=== PATIENT | male | born 1945 | race Caucasian/White ===

== ENCOUNTER → 2017-05-09 | Outpatient (CLI) | payer MEDICARE, BC | END | disposition home or self-care (01) | LOC: PCVCCLINIC 12:47 | PROVIDERS: ATTEND Internal Medicine Cardiovascular Disease | DX: I25.10 Atherosclerotic heart disease of native coronary artery without angina pectoris (principal); I10 Essential (primary) hypertension; E78.00 Pure hypercholesterolemia, unspecified; E03.9 Hypothyroidism, unspecified; I44.0 Atrioventricular block, first degree; I45.10 Unspecified right bundle-branch block; I25.2 Old myocardial infarction; Z88.5 Allergy status to narcotic agent; Z79.84 Long term (current) use of oral hypoglycemic drugs | CPT/HCPCS: 93005; G0463 ==

== ENCOUNTER → 2017-07-04 | Outpatient (CLI) | payer MEDICARE ==
--- NOTE | 2017-07-04 15:24 | PCVCIMAG ---
APPROVED REPORT Study performed: 07/04/2017 14:25:42 EXAM: Comprehensive 2D, Doppler, and color-flow Echocardiogram Patient Location: Echo lab Status: routine BSA: 2.36 HR: 68 bpmBP: 136/68 mmHg Rhythm: NSR Other Information Study Quality: Adequate Risk Factors: Cardiac Risk Factors: HTN Indications Diabetes Dyspnea CAD 2D Dimensions LVEF(%): 71.08 (>50%) IVSd: 12.71 (7-11mm) LVDd: 38.79 mm PWd: 14.22 (7-11mm) LVDs: 23.35 (25-40mm) Left Atrium: 38.51 (27-40mm) Aortic Root: 32.46 mm LV Single Plane 4CH: 60.46 % LV Single Plane 2CH: 51.99 %Huang's LVEF: 56.22 % Biplane EF: 56.2 % Volumes Left Atrial Volume (Systole) Single Plane 4CH: 88.75 mLSingle Plane 2CH: 89.84 mL LA ESV Index: 42.00 mL/m2 Aortic Valve AoV Peak Rich.: 1.49 m/s AO Peak Gr.: 8.91 mmHgLVOT Max P.29 mmHg LVOT Max V: 1.04 m/s Mitral Valve E/A Ratio: 0.8 MV Decel. Time: 414.33 ms MV E Max Rich.: 0.65 m/s MV A Rich.: 0.77 m/s IVRT: 124.57 ms Pulmonary Vein P Vein S: 0.27 m/sP Vein A: 0.31 m/s P Vein D: 0.39 m/sP Vein A Dur.: 159.2 msec P Vein S/D Ratio: 0.69 Tricuspid Valve TR Peak Rich.: 2.28 m/s TR Peak Gr.: 20.82 mmHg Left Ventricle The left ventricle is normal size. There is normal LV segmental wall motion. Mild concentric left ventricular hypertrophy. Left ventricular systolic function is normal. The left ventricular ejection fraction is within the normal range. LVEF is 55-60%. Grade I - abnormal relaxation pattern. Right Ventricle The right ventricle is normal size. The right ventricular systolic function is normal. Atria Left atrium is moderately dilated. Right atrium is mildly dilated. Aortic Valve Moderate aortic sclerosis, no stenosis. No aortic regurgitation is present. There is no aortic valvular stenosis. Mitral Valve The mitral valve is normal in structure. There is no mitral valve regurgitation noted. No evidence of mitral valve stenosis. Tricuspid Valve The tricuspid valve is normal in structure. Trace tricuspid regurgitation with PAP of 28 mmHg. Pulmonic Valve The pulmonary valve is normal in structure. There is no pulmonic valvular regurgitation. Great Vessels The aortic root is normal in size. IVC is normal in size and collapses with >50% inspiration Pericardium There is no pericardial effusion. <Conclusion> The left ventricle is normal size. Mild concentric left ventricular hypertrophy. Left ventricular systolic function is normal. Grade I - abnormal relaxation pattern. The right ventricle is normal size. Left atrium is moderately dilated. There is no aortic valvular stenosis. The mitral valve is normal in structure. Trace tricuspid regurgitation with PAP of 28 mmHg.
== END | disposition home or self-care (01) ==
LOC: PCVCIMAG 14:24
PROVIDERS: ATTEND Internal Medicine Cardiovascular Disease
DX: I25.10 Atherosclerotic heart disease of native coronary artery without angina pectoris (principal); I10 Essential (primary) hypertension; E11.9 Type 2 diabetes mellitus without complications; I51.7 Cardiomegaly; I35.8 Other nonrheumatic aortic valve disorders
CPT/HCPCS: 93005; 93306; G0463

== ENCOUNTER → 2017-07-16 | Outpatient (CLI) | payer MEDICARE ==
[~2017-07-16] MED LIST: REGADENOSON 0.4 MG/5 ML DISP.SYRIN. IV ONE
--- NOTE | 2017-07-16 11:03 | PCVCIMAG ---
APPROVED REPORT Exam: Nuclear Stress Test Indication: Dyspnea, Fatigue Patient Location: Out-Patient Stress Nurse: So Caputo RN, Shannon Frazier RN VA Tech:MOSES HammondMT Ht: 6 ft 1 in Wt: 245 lbs BSA: 2.35 m2 HR: 60 bpm BP: 150/68 mmHg BMI: 32.32 Rhythm: SR, RBBB Medical History Medical History: Hyperlipidemia, HTN, Diabetic Noninsulin, Age, CAD, [place] Medications: Amlodipine, Atorvastatin, Coreg, Hyzaar, Glucophage Allergies: Codeine Previous Cardiac Procedures: PCI Pretest Chest Pain Characteristics: No chest pain Exercise History: Sedentary Physical Disabilities: Knees Meds Held (24 hrs): Carvedilol Stress Test Details Stress Test: Pharmacologic stress testing performed using 0.4 mg of regadenoson per 5 mL given IV over 10 seconds. Reason for pharmacologic stress test: physical limitation. HR Resting HR: 60 bpmMax Heart Rate (APMHR): 149 bpm Max HR Achieved: 91 bpmTarget HR (85% APMHR): 126 bpm % of APMHR: 61 Recovery HR: 81 bpm BP Resting BP: 150/68 mmHg Max BP: 133/63 mmHg ECG Resting ECG: Sinus Rhythm, RBBB, Bifascicular Block Stress ECG: Sinus Rhythm, RBBB, Bifascicular Block ST Change: Non-ischemic Recovery ECG: Sinus Rhythm, RBBB, Bifascicular Block Clinical Reason for Termination: Completed protocol Stress Symptoms: Dizzy Exercise duration: 0 min 55 sec Exercise capacity: 1.0 METs Symptoms resolved during recovery. NM EXAM: Myocardial Perfusion REST/STRESS Imaging Protocol: Rest Tc-99m/Stress Tc-99m 1 day Resting Data Rest SPECT myocardial perfusion imaging was performed in supine position 45 minutes following the intravenous injection of 10.2 mCi of Tc-99m Sestamibi. Time of rest injection: 819 Date: 07/16/2017 Administration Route: IV Administration Site: Right AC Pharmacologic Stress Pharmacologic stress test was performed by injecting Regadenoson 0.4 mg IV push followed by the intravenous injection of 31.7 mCi of Tc-99m Sestamibi. Time of stress injection: 929 Administration Route: IV Administration Site: Right AC Gated Stress SPECT was performed 45 minutes after stress injection. Study Quality Study: Good Study Data Post stress, the left ventricular ejection was 75%.. SSS: 0 SRS: 1 SDS: 0 TID = 1.28. Perfusion There is a small area of mildly reduced uptake in the basal segment of the inferior wall which is seen on the stress images as well as the resting images. This area thickens and moves normally and is most consistent with myocardial scar. Wall Motion Normal left ventricular wall motion. Nuclear Conclusion ECG Findings: negative for ischemia Clinical Findings: non-diagnostic Nuclear Findings: negative for ischemia This study is of low probability for inducible ischemia. There is an incomplete infarct in the basal inferior segment. Normal global and segmental LV systolic function.
== END | disposition home or self-care (01) ==
LOC: PCVCIMAG 08:12
PROVIDERS: ATTEND Internal Medicine Cardiovascular Disease
DX: I25.10 Atherosclerotic heart disease of native coronary artery without angina pectoris (principal); I10 Essential (primary) hypertension; E78.00 Pure hypercholesterolemia, unspecified; R06.00 Dyspnea, unspecified; R53.83 Other fatigue; E11.9 Type 2 diabetes mellitus without complications; Z95.5 Presence of coronary angioplasty implant and graft; Z79.82 Long term (current) use of aspirin
CPT/HCPCS: 78452; 93017; A9500; G0463; J2785

== ENCOUNTER → 2017-12-16 | Outpatient (CLI) | payer MEDICARE | END | disposition home or self-care (01) | LOC: PCVCCLINIC 11:38 | DX: I25.10 Atherosclerotic heart disease of native coronary artery without angina pectoris (principal); I10 Essential (primary) hypertension; E78.00 Pure hypercholesterolemia, unspecified; R94.31 Abnormal electrocardiogram [ECG] [EKG]; Z79.82 Long term (current) use of aspirin; Z79.84 Long term (current) use of oral hypoglycemic drugs | CPT/HCPCS: 93005; G0463 ==

== ENCOUNTER → 2018-06-16 | Outpatient (CLI) | payer MEDICARE | END | disposition home or self-care (01) | LOC: PCVCCLINIC 14:36 | PROVIDERS: ATTEND Internal Medicine Cardiovascular Disease | DX: I25.10 Atherosclerotic heart disease of native coronary artery without angina pectoris (principal); I10 Essential (primary) hypertension; E78.00 Pure hypercholesterolemia, unspecified; R60.9 Edema, unspecified; Z79.82 Long term (current) use of aspirin; Z79.84 Long term (current) use of oral hypoglycemic drugs | CPT/HCPCS: 93005; G0463 ==

== ENCOUNTER → 2018-12-15 | Outpatient (CLI) | payer MEDICARE ==
--- NOTE | 2018-12-15 14:17 | PCVCIMAG ---
APPROVED REPORT Study performed: 12/15/2018 13:09:53 EXAM: Comprehensive 2D, Doppler, and color-flow Echocardiogram Patient Location: Echo lab Status: routine BSA: 2.31 HR: 51 bpmBP: 140/76 mmHg Rhythm: Bradycardia Other Information Study Quality: Adequate Technically limited study due to poor acoustic windows. Risk Factors: Cardiac Risk Factors: HTN Indications Diabetes CAD RBBB 2D Dimensions IVSd: 14.75 (7-11mm) LVDd: 41.76 mm PWd: 12.21 (7-11mm)Ascending Ao: 34.50 (22-36mm) LVDs: 32.73 (25-40mm) Left Atrium: 38.02 (27-40mm) Aortic Root: 29.78 mm LV Single Plane 4CH: 49.95 % LV Single Plane 2CH: 56.73 % Biplane EF: 52.9 % Volumes Left Atrial Volume (Systole) Single Plane 4CH: 122.83 mLSingle Plane 2CH: 139.76 mL LA ESV Index: 58.00 mL/m2 Aortic Valve AoV Peak Rich.: 1.47 m/s AO Peak Gr.: 8.65 mmHgLVOT Max P.79 mmHg LVOT Max V: 1.09 m/s Mitral Valve E/A Ratio: 1.3 MV Decel. Time: 312.86 ms MV E Max Rich.: 0.63 m/s MV A Rich.: 0.47 m/s IVRT: 128.03 ms Pulmonary Valve PV Peak Rich.: 0.85 m/sPV Peak Gr.: 2.91 mmHg Pulmonary Vein P Vein S: 0.28 m/s P Vein D: 0.35 m/s P Vein S/D Ratio: 0.80 Tricuspid Valve TR Peak Rich.: 2.37 m/s TR Peak Gr.: 22.48 mmHg Left Ventricle The left ventricle is normal size. There is normal LV segmental wall motion. Mild to moderate concentric left ventricular hypertrophy. Left ventricular systolic function is normal. The left ventricular ejection fraction is within the normal range. LVEF is 50-55%. Grade I - abnormal relaxation pattern. Right Ventricle The right ventricle is normal size. The right ventricular systolic function is normal. Atria Left atrium is severely dilated. Right atrium is moderately dilated. Aortic Valve Mild aortic valve sclerosis. No aortic regurgitation is present. There is no aortic valvular stenosis. Mitral Valve The mitral valve is normal in structure. Mild mitral regurgitation. No evidence of mitral valve stenosis. Tricuspid Valve The tricuspid valve is normal in structure. Mild tricuspid regurgitation with PAP of 32 mmHg. Pulmonic Valve The pulmonary valve is normal in structure. There is no pulmonic valvular regurgitation. Great Vessels The aortic root is normal in size. IVC is normal in size and collapses >50% with inspiration. Pericardium There is no pericardial effusion. There is no pleural effusion. <Conclusion> The left ventricle is normal size. Mild to moderate concentric left ventricular hypertrophy. Left ventricular systolic function is normal. Grade I - abnormal relaxation pattern. The right ventricle is normal size. Left atrium is severely dilated. Right atrium is moderately dilated. Mild aortic valve sclerosis. Mild mitral regurgitation. Mild tricuspid regurgitation with PAP of 32 mmHg.
== END | disposition home or self-care (01) ==
LOC: PCVCIMAG 13:42
PROVIDERS: ATTEND Internal Medicine Cardiovascular Disease
DX: I08.3 Combined rheumatic disorders of mitral, aortic and tricuspid valves (principal); I25.10 Atherosclerotic heart disease of native coronary artery without angina pectoris; E11.9 Type 2 diabetes mellitus without complications; I45.10 Unspecified right bundle-branch block
CPT/HCPCS: 93306

== ENCOUNTER → 2019-06-15 | Outpatient (CLI) | payer MEDICARE | END | disposition home or self-care (01) | LOC: PCVCCLINIC 15:33 | PROVIDERS: ATTEND Internal Medicine Cardiovascular Disease | DX: I25.10 Atherosclerotic heart disease of native coronary artery without angina pectoris (principal); I10 Essential (primary) hypertension; E78.00 Pure hypercholesterolemia, unspecified; R60.9 Edema, unspecified; Z79.82 Long term (current) use of aspirin; Z79.84 Long term (current) use of oral hypoglycemic drugs | CPT/HCPCS: 93005; G0463 ==